=== PATIENT | male | born 1940 | race Caucasian/White ===

== ENCOUNTER 2018-08-25 10:06 | Observation (INO) | payer MEDICARE ==
[~2018-08-25] VITALS: Ht 177.8 cm; Wt 88.9 kg
[2018-08-25 10:54] VITALS: BP 154/65
[2018-08-25] MEDS ORDERED: VANCOMYCIN PMX 1GM/200ML 200 ML IVPB SCH (11:00)
[2018-08-25] MEDS ORDERED: ATOR40TA PO (11:10)
[2018-08-25] MEDS ORDERED: OLME40TA12 PO (11:10)
[2018-08-25] MEDS ORDERED: ASPI-496 PO (11:10)
[2018-08-25] MEDS ORDERED: FINA5TAB PO (11:10)
[2018-08-25] MEDS ORDERED: AMLO-150 PO (11:10)
[2018-08-25] MEDS ORDERED: ALLO100T30 PO (11:10)
[2018-08-25] MEDS ORDERED: ALFU10TA PO (11:10)
[2018-08-25] MEDS ORDERED: LEVO137T3 PO (11:10)
[2018-08-25] MEDS ORDERED: FENTANYL PF 100 MCG/2ML ONE ×2 (12:06→13:08)
[2018-08-25] MEDS ORDERED: CEFAZOLIN PMX 1GM/50ML 50 ML ONE (12:06)
[2018-08-25] MEDS ORDERED: MIDAZOLAM 1 MG/ML, 5ML ONE (12:06)
[2018-08-25] MEDS ORDERED: CEFAZOLIN 1,000 MG ONE (12:06)
[2018-08-25] MEDS ORDERED: LIDOCAINE 1%, 20ML ONE (12:07)
[2018-08-25] MEDS ORDERED: VANCOMYCIN PMX 1GM/200ML 200 ML ONE (12:22)
[2018-08-25] MEDS ORDERED: VANCOMYCIN 500 MG ONE (12:22)
[2018-08-25] MEDS ORDERED: MIDAZOLAM 1 MG/ML, 2ML ONE (13:08)
[2018-08-25] MEDS ORDERED: ONDANSETRON 2MG/ML, 2ML IV PRN (14:30)
[2018-08-25] MEDS ORDERED: ZOLPIDEM 5MG TABLET PO PRN (14:30)
[2018-08-25] MEDS ORDERED: HYDROcodone/APAP 5/325 TABLET PO PRN (14:30)
[2018-08-25] MEDS ORDERED: HOLD MEDICATION MC PRN (14:30)
[2018-08-25] MEDS: SODIUM CHLORIDE 0.9% 1,000 ML IV SCH ×2 (14:33→19:00)
[2018-08-25] MEDS: ACETAMINOPHEN 325 MG TABLET PO PRN (15:10)
[2018-08-25 20:31] VITALS: BP 157/70
[2018-08-25] MEDS ORDERED: ATORVASTATIN 80 MG TABLET PO SCH (21:00)
[2018-08-25] MEDS: SODIUM CHLORIDE FLUSH 10ML SYR IVF SCH (21:41)
[2018-08-26] MEDS ORDERED: VANCOMYCIN PMX 1GM/200ML 200 ML IVPB SCH
[2018-08-26] MEDS: ACETAMINOPHEN 325 MG TABLET PO PRN ×2 (01:48→09:14)
[2018-08-26 02:00] VITALS: BP 139/68
[2018-08-26 07:38] VITALS: BP 147/74
[2018-08-26] MEDS ORDERED: FINASTERIDE 5 MG TABLET PO SCH (09:00)
[2018-08-26] MEDS ORDERED: AMLODIPINE 5 MG TABLET PO SCH (09:00)
[2018-08-26] MEDS ORDERED: LEVOTHYROXINE 137 MCG TABLET PO SCH (09:00)
[2018-08-26] MEDS ORDERED: TEMPLATE NON-FORMULARY MED. (Alfuzosin Hcl** (Uroxatral**) 10 MG) HOMEMEDPO SCH (09:00)
[2018-08-26] MEDS ORDERED: ASPIRIN 81 MG TABLET EC PO SCH (09:00)
[2018-08-26] MEDS ORDERED: ALLOPURINOL 300 MG TABLET PO SCH (09:00)
[2018-08-26] MEDS ORDERED: LOSARTAN 50MG TABLET PO SCH (09:00)
[2018-08-26] MEDS: SODIUM CHLORIDE FLUSH 10ML SYR IVF SCH (09:07)
== END 2018-08-26 10:30 | disposition home or self-care (01) ==
LOC: CACL 10:06 → 5SO 14:14 → CACL 14:27 → DCLOUNGE 08-26 10:17
PROVIDERS: ADMIT Internal Medicine Cardiovascular Disease; ATTEND Internal Medicine Cardiovascular Disease
DX: R00.1 Bradycardia, unspecified (principal); I45.10 Unspecified right bundle-branch block; I49.5 Sick sinus syndrome
CPT/HCPCS: 33208; 71045; 96365; 99156; 99157; C1779; C1785; C1892; G0378; J0690; J2250; J3010; J3370; J3490; Q9967

== ENCOUNTER 2019-05-23 09:40 | Observation (INO) | payer MEDICARE ==
[~2019-05-23] VITALS: Ht 177.8 cm; Wt 92.3 kg
[~2019-05-23 09:40] MED LIST: ALFU10TA PO; ALLO100T30 PO; AMLO-150 PO; ASPI-496 PO; ATOR40TA PO; FINA5TAB PO; LEVO137T3 PO; OLME40TA12 PO
[2019-05-23 10:00] VITALS: BP 182/89
[2019-05-23 10:35] LABS: BASOPHILS # (AUTO) 0.02 x10^3/uL (0-0.1); BASOPHILS % (AUTO) 0 % (0-1); EOSINOPHILS # (AUTO) 0.36 x10^3/uL (0-0.4); EOSINOPHILS % (AUTO) 6 % (1-7); LYMPHOCYTES # (AUTO) 1.96 x10^3/uL (1-3.4); LYMPHOCYTES % (AUTO) 30 % (22-44); MD NO; MEAN CORPUSCULAR HEMOGLOBIN 34.2 pg (27.5-34.5); MEAN CORPUSCULAR HGB CONC 33.1 g/dL (33.2-36.2); MEAN CORPUSCULAR VOLUME 103.5 fL (81-97); MEAN PLATELET VOLUME 8.1 fL (7.4-10.4); MONOCYTES % (AUTO) 12 % (2-9); NEUTROPHILS # (AUTO) 3.32 x10^3/uL (1.8-6.8); NEUTROPHILS % (AUTO) 52 % (42-75); PLATELET COUNT 222 x10^3/uL (130-400); RED CELL DISTRIBUTION WIDTH 14.2 % (9.4-14.8)
[2019-05-23 10:42] LABS: ANION GAP 7 mmol/L (5-15); CALCIUM 9.5 mg/dL (8.5-10.1); CHLORIDE 110 mmol/L (98-107); CREATININE 1.19 mg/dL (0.7-1.3)
[2019-05-23] MEDS ORDERED: FENTANYL PF 100 MCG/2ML ONE (11:02)
[2019-05-23] MEDS ORDERED: MIDAZOLAM 1 MG/ML, 2ML ONE ×2 (11:02→12:41)
[2019-05-23] MEDS ORDERED: LIDOCAINE-MPF 1%, 5ML ONE (11:03)
[2019-05-23] MEDS ORDERED: HEPARIN 1,000 UNITS/ML, 10ML ONE (11:03)
[2019-05-23] MEDS ORDERED: VERAPAMIL 2.5 MG/ML, 2ML ONE (11:03)
[2019-05-23] MEDS ORDERED: BIVALIRUDIN 250 MG ONE (11:03)
[2019-05-23] MEDS ORDERED: TICAGRELOR 90 MG TABLET ONE (13:30)
[2019-05-23] MEDS: SODIUM CHLORIDE 0.9% 1,000 ML IV SCH ×2 (13:38→20:20)
[2019-05-23] MEDS ORDERED: ONDANSETRON 2MG/ML, 2ML IVPush PRN (14:00)
[2019-05-23] MEDS ORDERED: ZOLPIDEM 5MG TABLET PO PRN (14:00)
[2019-05-23] MEDS ORDERED: ACETAMINOPHEN 325 MG TABLET PO PRN (14:00)
[2019-05-23] MEDS ORDERED: BISACODYL 5 MG EC TABLET PO PRN (14:00)
[2019-05-23 19:42] VITALS: BP 175/76
[2019-05-23] MEDS: TICAGRELOR 90 MG TABLET PO SCH (20:20)
[2019-05-23] MEDS ORDERED: ATORVASTATIN 80 MG TABLET PO SCH (21:00)
[2019-05-23] MEDS: LOSARTAN 50MG TABLET PO SCH (21:17)
[2019-05-24 01:33] VITALS: BP 151/69
[2019-05-24 05:02] LABS: ANION GAP 3 mmol/L (5-15); CHLORIDE 109 mmol/L (98-107)
[2019-05-24 05:03] LABS: CREATININE 1.15 mg/dL (0.7-1.3)
[2019-05-24] MEDS: SODIUM CHLORIDE 0.9% 1,000 ML IV SCH (05:38)
[2019-05-24 07:22] VITALS: BP 162/76
[2019-05-24 08:30] VITALS: BP 147/75
[2019-05-24] MEDS ORDERED: ALLOPURINOL 300 MG TABLET PO SCH (09:00)
[2019-05-24] MEDS ORDERED: LOSARTAN 50MG TABLET PO SCH (09:00)
[2019-05-24] MEDS ORDERED: AMLODIPINE 5 MG TABLET PO SCH (09:00)
[2019-05-24] MEDS ORDERED: ASPIRIN 81 MG TABLET EC PO SCH ×2 (09:00)
[2019-05-24] MEDS ORDERED: LEVOTHYROXINE 137 MCG TABLET PO SCH (09:00)
[2019-05-24] MEDS: TICAGRELOR 90 MG TABLET PO SCH (10:29)
[2019-05-24] MEDS: LOSARTAN 50MG TABLET PO SCH (10:29)
[2019-05-24] MEDS ORDERED: METO25TA2 PO (10:58)
[2019-05-24] MEDS ORDERED: TICA90TA PO (10:58)
== END 2019-05-24 12:13 | disposition home or self-care (01) ==
LOC: CACL 09:40 → UNDOADMOB 13:38 → 5SO 13:38 → CACL 13:38 → 5SO 13:40 → DCLOUNGE 05-24 11:56
PROVIDERS: ADMIT Internal Medicine Cardiovascular Disease; ATTEND Internal Medicine Cardiovascular Disease
DX: I25.110 Atherosclerotic heart disease of native coronary artery with unstable angina pectoris (principal); E78.5 Hyperlipidemia, unspecified; G47.33 Obstructive sleep apnea (adult) (pediatric); I10 Essential (primary) hypertension; K21.9 Gastro-esophageal reflux disease without esophagitis; N40.1 Benign prostatic hyperplasia with lower urinary tract symptoms; F17.200 Nicotine dependence, unspecified, uncomplicated; Z79.82 Long term (current) use of aspirin; Z88.0 Allergy status to penicillin; Z79.899 Other long term (current) drug therapy; Z95.0 Presence of cardiac pacemaker
CPT/HCPCS: 36415; 80048; 85014; 85018; 85025; 93458; 99156; 99157; C1725; C1769; C1874; C1887; C1894; C9600; G0378; J0583; J1644; J2250; J3010; Q9967